=== PATIENT | female | born 1935 | race Hispanic/Latino ===

== ENCOUNTER 2022-05-19 09:01 | Outpatient (CLI) | payer MEDICARE, OTHER | END 2022-05-19 09:02 | disposition home or self-care (01) | LOC: NAV CT 09:01 | PROVIDERS: ATTEND Family Medicine | DX: Z01.818 Encounter for other preprocedural examination (principal); K57.92 Diverticulitis of intestine, part unspecified, without perforation or abscess without bleeding; K59.00 Constipation, unspecified | CPT/HCPCS: 36415; 74176; 82565 ==

== ENCOUNTER 2022-05-29 10:55 | Outpatient (CLI) | payer OTHER | END 2022-05-29 10:56 | disposition home or self-care (01) | LOC: NAV RAD 10:55 | PROVIDERS: ATTEND Family Medicine | DX: R07.81 Pleurodynia (principal) ==

== ENCOUNTER 2024-04-30 12:45 | Emergency (ER) | payer OTHER, MEDICAID, MEDICARE ==
[2024-04-30] MEDS ORDERED: Acetaminophen 500 MG TAB ONE (13:42)
== END 2024-04-30 14:51 | disposition home or self-care (01) ==
LOC: NAV ERS 12:45
DX: S00.03XA Contusion of scalp, initial encounter (principal); M54.6 Pain in thoracic spine; I10 Essential (primary) hypertension; E11.51 Type 2 diabetes mellitus with diabetic peripheral angiopathy without gangrene; W10.9XXA Fall (on) (from) unspecified stairs and steps, initial encounter
CPT/HCPCS: 70450; 72125; 72128; 72131

== ENCOUNTER 2024-05-26 11:58 | Outpatient (CLI) | payer OTHER, MEDICAID | END 2024-05-26 11:59 | disposition home or self-care (01) | LOC: NAV CT 11:58 | PROVIDERS: ATTEND Family Medicine | DX: S09.90XD Unspecified injury of head, subsequent encounter (principal); I67.89 Other cerebrovascular disease; I63.81 Other cerebral infarction due to occlusion or stenosis of small artery; S00.03XD Contusion of scalp, subsequent encounter | CPT/HCPCS: 70450 ==

== ENCOUNTER 2024-06-16 22:43 | Emergency (ER) | payer OTHER, MEDICAID ==
[2024-06-16 23:52] LABS: Anion Gap 22 mmol/L (10-20); BUN (Urea Nitrogen) 76 mg/dL (9.8-20.1); Calc. Creatinine Clearance 0 mL/min (70-130); Calcium 9.5 mg/dL (7.8-10.44); Carbon Dioxide 20 mmol/L (23-31); Chloride 101 mmol/L (98-107); Estimated GFR 18; Glucose 323 mg/dL (83-110); Potassium 5.6 mmol/L (3.5-5.1); Sodium 137 mmol/L (136-145)
[2024-06-17] MEDS ORDERED: Cephalexin 500 MG CAP ONE (00:04)
== END 2024-06-17 00:15 | disposition home or self-care (01) ==
LOC: NAV ERS 22:43
DX: S90.422A Blister (nonthermal), left great toe, initial encounter (principal); E11.22 Type 2 diabetes mellitus with diabetic chronic kidney disease; N18.9 Chronic kidney disease, unspecified; E11.65 Type 2 diabetes mellitus with hyperglycemia; E11.51 Type 2 diabetes mellitus with diabetic peripheral angiopathy without gangrene; I10 Essential (primary) hypertension; E78.5 Hyperlipidemia, unspecified; Z79.84 Long term (current) use of oral hypoglycemic drugs; Z79.899 Other long term (current) drug therapy
CPT/HCPCS: 36415; 80048; 99283

== ENCOUNTER 2024-06-23 12:36 | Outpatient (CLI) | payer OTHER, MEDICAID ==
[2024-06-23 13:16] LABS: Anion Gap 19 mmol/L (10-20); BUN (Urea Nitrogen) 66 mg/dL (9.8-20.1); Calc. Creatinine Clearance 0 mL/min (70-130); Calcium 10.9 mg/dL (7.8-10.44); Carbon Dioxide 23 mmol/L (23-31); Chloride 98 mmol/L (98-107); Estimated GFR 17; Glucose 255 mg/dL (83-110); Potassium 5.3 mmol/L (3.5-5.1); Sodium 135 mmol/L (136-145)
[2024-06-23 13:34] LABS: Follow-up Chemistry Comp? YES; Follow-up Result - Chemistry REPORT FAXED
== END 2024-06-23 12:37 | disposition home or self-care (01) ==
LOC: NAV RAD 12:36
PROVIDERS: ATTEND Family Medicine
DX: I50.32 Chronic diastolic (congestive) heart failure (principal); S91.102S Unspecified open wound of left great toe without damage to nail, sequela; N18.30 Chronic kidney disease, stage 3 unspecified
CPT/HCPCS: 36415; 71046; 80048

== ENCOUNTER 2024-07-08 20:58 | Emergency (ER) | payer OTHER, MEDICAID ==
[2024-07-08 21:41] LABS: Bilirubin Negative (Negative); Blood, Urine Small (Negative); Clarity Clear (Clear); Glucose, Urine (Dipstick) Negative (Negative); Ketone, Urine Negative (Negative); Leukocyte Negative (Negative); Nitrite Negative (Negative); Protein, Urine (Dipstick) Negative (Neg-Trace); Urobilinogen 0.2 mg/dL (Less than 2); pH, Urine 6.5 (5.0-9.0)
[2024-07-08 21:42] LABS: Bacteria/HPF None Seen HPF (None Seen); CAUTI Indications for Culture Alt mental st,lethar; Calcium Oxalate Crystals Rare HPF (None Seen); RBC/HPF 0-3 HPF (0-3); Squamous Epithelial 0-3 HPF (0-3); WBC/HPF None Seen HPF (0-3)
[2024-07-08 21:43] LABS: Urine Culture Reflex No No
[2024-07-08 21:46] LABS: Amphetamine Not Detected (NotDetected); Barbiturates Screen Not Detected (NotDetected); Benzodiazepine Screen Not Detected (NotDetected); Cocaine Metabolite Screen Not Detected (NotDetected); Methadone Not Detected (NotDetected); Methamphetamine Not Detected (NotDetected); Opiate Screen Not Detected (NotDetected); Oxycodone Screen Not Detected (NotDetected); Phencyclidine (PCP) Not Detected (NotDetected); THC/Cannabinoid Screen Not Detected (NotDetected); Tricyclic Screen Not Detected (NotDetected)
[2024-07-08 21:59] LABS: #Eosinophils 0.1 thou/uL (0.0-0.7); #Lymphocytes 1.8 thou/uL (1.20-3.40); #Monocytes 0.5 thou/uL (0.11-0.59); #Neutrophils 3.4 thou/uL (1.40-6.50); %Basophils 0.6 % (0.0-1.0); %Eosinophils 1.6 % (0.0-10.0); %Lymphocytes 30.9 % (21.0-51.0); %Monocytes 8.4 % (0.0-10.0); %Neutrophils 58.5 % (42.0-75.0); Hematocrit 32.9 % (36.0-47.0); Hemoglobin 10.3 g/dL (12.0-16.0); Mean Corpuscular HGB CONC 31.3 g/dL (32.0-36.0); Mean Corpuscular Hemoglobin 29.4 pg (27.0-31.0); Mean Corpuscular Volume 93.8 fl (78.0-98.0); Mean Platelet Volume 6.2 fL (7.4-10.4); Platelet Count 302 10x3/uL (130-400); RBC Distribution Width 13.6 % (11.5-14.5); White Blood Cell (WBC) Count 5.8 10x3/uL (4.8-10.8)
[2024-07-08 22:29] LABS: ALT (SGPT) 22 U/L (Less than 34); AST (SGOT) 43 U/L (11-34); Albumin 3.5 g/dL (3.1-4.5); Alkaline Phosphatase 71 U/L (40-110); Anion Gap 19 mmol/L (10-20); BUN (Urea Nitrogen) 66 mg/dL (9.8-20.1); Bilirubin, Total 0.3 mg/dL (0.3-1.2); Calc. Creatinine Clearance 0 mL/min (70-130); Calcium 10.6 mg/dL (7.8-10.44); Carbon Dioxide 23 mmol/L (23-31); Chloride 98 mmol/L (98-107); Estimated GFR 15; Globulin 3.7 g/dL (2.4-3.5); Glucose 191 mg/dL (83-110); Potassium 5.6 mmol/L (3.5-5.1); Protein, Total 7.2 g/dL (5.8-8.1); Sodium 134 mmol/L (136-145)
[2024-07-08] MEDS ORDERED: Sodium Chloride 0.9% 1,000 ML ONE (22:36)
[2024-07-09 00:39] LABS: Anion Gap 17 mmol/L (10-20); BUN (Urea Nitrogen) 61 mg/dL (9.8-20.1); Calc. Creatinine Clearance 0 mL/min (70-130); Calcium 10.4 mg/dL (7.8-10.44); Carbon Dioxide 21 mmol/L (23-31); Chloride 102 mmol/L (98-107); Estimated GFR 18; Glucose 135 mg/dL (83-110); Potassium 4.5 mmol/L (3.5-5.1); Sodium 135 mmol/L (136-145)
== END 2024-07-09 01:05 | disposition home or self-care (01) ==
LOC: NAV ERS 20:58
DX: E86.0 Dehydration (principal); D63.1 Anemia in chronic kidney disease; I12.9 Hypertensive chronic kidney disease with stage 1 through stage 4 chronic kidney disease, or unspecified chronic kidney disease; E11.22 Type 2 diabetes mellitus with diabetic chronic kidney disease; N18.9 Chronic kidney disease, unspecified; E11.51 Type 2 diabetes mellitus with diabetic peripheral angiopathy without gangrene; E78.5 Hyperlipidemia, unspecified; Z79.899 Other long term (current) drug therapy
CPT/HCPCS: 70450; 80048; 80306; 81001; 83605; J7030; 36415; 80053; 84443; 85025; 96360

== ENCOUNTER 2025-01-17 16:17 | Outpatient (CLI) | payer OTHER | END 2025-01-17 16:18 | disposition home or self-care (01) | LOC: NAV RAD 16:17 | PROVIDERS: ATTEND Family Medicine | DX: M25.571 Pain in right ankle and joints of right foot (principal); M19.071 Primary osteoarthritis, right ankle and foot; M21.41 Flat foot [pes planus] (acquired), right foot ==